=== PATIENT | male | born 1960 | race Caucasian/White ===

== ENCOUNTER 2019-04-11 09:49 | Inpatient (IN) | payer OTHER ==
[2019-04-11 10:14] VITALS: BMI 26.6
--- NOTE | 2019-04-11 10:54 | HP ---
COWS - Scale Resting Pulse: 1= DC 81-100 Sweatin= Chills/Flushing Restless Observation: 1= Difficult to Sit Still Pupil Size: 0= Normal to Room Light Bone or Joint Aches: 1= Mild Discomfort Runny Nose/ Eye Tearin= Runny Nose/Eyes GI Upset > 30mins: 2= Nausea/Diarrhea Tremor Observation: 2= Slight Tremor Visible Yawning Observation: 1= 1-2x During Session Anxiety or Irritability: 2=Irritable/Anxious Goose Flesh Skin: 0=Smooth Skin COWS Score: 13 CIWA Score Nausea/Vomitin Muscle Tremors: 4-Moderate,w/Arms Extend Anxiety: 4-Mod. Anxious/Guarded Agitation: 1-Slight > Activity Paroxysmal Sweats: 1-Minimal Palms Moist Orientation: 0-Oriented Tacttile Disturbances: 1-Very Mild Itch/Numbness Auditory Disturbances: 0-None Visual Disturbances: 4-Moderate Hallucinations (during exam, patient states he saw his mother yawning (she 2014)) Headache: 2-Mild CIWA-Ar Total Score: 19 - Admission Criteria [facility]ASAS Guidelines: Admission for Medically Managed Detox: Requires at least one of the followin. CIWA greater than 12 2. Seizures within the past 24 hours 3. Delirium tremens within the past 24 hours 4. Hallucinations within the past 24 hours 5. Acute intervention needed for co occurring medical disorder 6. Acute intervention needed for co occurring psychiatric disorder 7. Severe withdrawal that cannot be handled at a lower level of care (continued vomiting, continued diarrhea, abnormal vital signs) requiring intravenous medication and/or fluids 8. Patient presents the following: CIWA greater than 12 Admission Criteria Met: Admission criteria met Admitting History and Physical - Admission History Source: Patient - Social History Usual Living Arrangement: Yes: Other (homeless) ADL: Support Services Admission ROS S - HPI Chief Complaint: I am really sick and tired, I"m almost 60, I'm tired of running the streets and being belittled and wasting my money Allergies/Adverse Reactions: Allergies Allergy/AdvReac Type Severity Reaction Status Date / Time No Known Allergies Allergy Verified 04/11/19 10:00 History of Present Illness: 58 yo gentleman here for detox from alcohol and opiates. Patient has a very long history of treatment - has been in several residential treatment programs over the last 10 years ([facility] twice - once for 3 years, another time for 17 month; also in [facility] [address] for 18 months as well as a [facility] for six years. Patient has been on subxoxone for over a year - states he is homeless and his suboxone was stolen so he relapsed with heroin. urine tox + methamphetamine but not using separately. Patient agrees to stay on suboxone and do an alcohol detox. No seizure but history of overdose several times. [facility] Search Terms: dave peng, 1960 Search Date: 04/11/2019 11:43:37 AM The Drug Utilization Report below displays all of the controlled substance prescriptions, if any, that your patient has filled in the last twelve months. The information displayed on this report is compiled from pharmacy submissions to the Department, and accurately reflects the information as submitted by the pharmacies. This report was requested by: Becky Savage | Reference #: [id number] Others' Prescriptions Patient Name: Dave Peng Date: 1960 Address: [address] [place] [address] Sex: Male Rx Written Rx Dispensed Drug Quantity Days Supply Prescriber Name 03/30/2019 04/04/2019 buprenorphine-naloxone 8-2 mg sl film 90 30 BaezaBret) 03/30/2019 04/04/2019 zolpidem tartrate 10 mg tablet 30 30 Baeza Bret) 12/11/2018 03/11/2019 zolpidem tartrate 10 mg tablet 30 30 Baeza Bret) 02/28/2019 03/11/2019 buprenorphine-naloxone 8-2 mg sl film 90 30 BaezaBret) 12/11/2018 02/09/2019 zolpidem tartrate 10 mg tablet 30 30 Baeza Bret) 01/19/2019 02/09/2019 buprenorphine-naloxone 8-2 mg sl film 90 30 BaezaBret) 12/11/2018 01/10/2019 suboxone 8 mg-2 mg sl film 90 30 BaezaBret) 12/11/2018 01/10/2019 zolpidem tartrate 10 mg tablet 30 30 Baeza Bret) 12/11/2018 12/13/2018 suboxone 8 mg-2 mg sl film 90 30 Baeza, Bret VILLALOBOS) 12/11/2018 12/13/2018 zolpidem tartrate 10 mg tablet 30 30 Baeza , Bret VILLALOBOS) 08/29/2018 11/14/2018 zolpidem tartrate 10 mg tablet 30 30 Baeza , Bret VILLALOBOS) 10/10/2018 11/14/2018 suboxone 8 mg-2 mg sl film 90 30 Tyler Horn MD 08/29/2018 10/18/2018 zolpidem tartrate 10 mg tablet 30 30 Baeza , Bret VILLALOBOS) 10/10/2018 10/18/2018 suboxone 8 mg-2 mg sl film 90 30 SchaefTyler mead MD 08/29/2018 09/18/2018 suboxone 8 mg-2 mg sl film 90 30 Baeza, Bret VILLALOBOS) 08/29/2018 09/18/2018 zolpidem tartrate 10 mg tablet 30 30 Baeza , Bret VILLALOBOS) 07/22/2018 08/21/2018 suboxone 8 mg-2 mg sl film 90 30 Baeza, Bret VILLALOBOS) 07/22/2018 08/21/2018 zolpidem tartrate 10 mg tablet 30 30 Baeza , Bret VILLALOBOS) 07/22/2018 07/24/2018 suboxone 8 mg-2 mg sl film 90 30 Baeza, Bret VILLALOBOS) 07/22/2018 07/24/2018 zolpidem tartrate 10 mg tablet 30 30 Baeza , Bret VILLALOBOS) 06/09/2018 06/25/2018 suboxone 8 mg-2 mg sl film 90 30 Baeza, Bret VILLALOBOS) Patient Name: Dave Peng Date: 1960 Address: [address] [place] [address] Sex: Male Rx Written Rx Dispensed Drug Quantity Days Supply Prescriber Name 04/08/2018 05/26/2018 suboxone 8 mg-2 mg sl film 90 30 Baeza, Bret VILLALOBOS) 04/08/2018 04/26/2018 suboxone 8 mg-2 mg sl film 90 30 Baeza, Bret VILLALOBOS) Exam Limitations: Clinical Condition - Ebola screening Have you traveled outside of the country in the last 21 days: No Have you had contact with anyone from an Ebola affected area: No - Review of Systems Constitutional: Chills, Loss of Appetite, Malaise, Changes in sleep, Weakness, Unintentional Wgt. Loss EENT: reports: Blurred Vision, Nose Congestion Respiratory: reports: Wheezing Cardiac: reports: Chest Tightness GI: reports: Nausea, Poor Appetite, Indigestion, Abdominal cramping : reports: Frequency Musculoskeletal: reports: Back Pain, Joint Pain, Muscle Pain Integumentary: reports: No Symptoms Reported Neuro: reports: Headache, Tremors, Weakness Endocrine: reports: No Symptoms Reported Hematology: reports: No Symptoms Reported Psychiatric: reports: Judgement Intact, Mood/Affect Appropiate, Orientated x3, Anxious Other Systems: Reviewed and Negative Patient History - Patient Medical History Hx Anemia: No Hx Asthma: Yes Hx Chronic Obstructive Pulmonary Disease (COPD): No Hx Cancer: No Hx Cardiac Disorders: No Hx Congestive Heart Failure: No Hx Hypertension: No Hx Hypercholesterolemia: No Hx Pacemaker: No HX Cerebrovascular Accident: No Hx Seizures: No Hx Dementia: No Hx Diabetes: No Hx Gastrointestinal Disorders: Yes (GERD) Hx Liver Disease: No Hx Genitourinary Disorders: No Hx Sexually Transmitted Disorders: Yes (hx syphilis - got two shots) Hx Renal Disease (ESRD): No Hx Thyroid Disease: No Hx Human Immunodeficiency Virus (HIV): No Hx Hepatitis C: No Hx Depression: Yes (on meds) Hx Suicide Attempt: Yes (does not remember when ) Hx Bipolar Disorder: Yes (hx hospitalization) Hx Schizophrenia: Yes ('my papers say I am") - Patient Surgical History Past Surgical History: No Hx Neurologic Surgery: No Hx Cataract Extraction: No Hx Cardiac Surgery: No Hx Lung Surgery: No Hx Breast Surgery: No Hx Breast Biopsy: No Hx Abdominal Surgery: No Hx Appendectomy: No Hx Cholecystectomy: No Hx Genitourinary Surgery: No Hx Section: No Hx Orthopedic Surgery: No Anesthesia Reaction: No - PPD History Date: 01/13/14 - Reproductive History Patient is a Female of Child Bearing Age (11 -55 yrs old): No - Smoking Cessation Smoking history: Current every day smoker Have you smoked in the past 12 months: Yes Aproximately how many cigarettes per day: 30 Hx Chewing Tobacco Use: No Initiated information on smoking cessation: Yes 'Breaking Loose' booklet given: 04/11/19 (give on floor) - Substance & Tx. History Hx Alcohol Use: Yes Hx Substance Use: Yes Substance Use Type: Alcohol - Substances abused Alcohol Substance route: Oral Frequency: Daily Amount used: 1 PINT OF LIQUOR Age of first use: 15 Date of last use: 04/09/19 Heroin Substance route: Inhalation Frequency: Daily Amount used: 10 BAGS Age of first use: 35 Date of last use: 04/11/19 Admission Physical Exam BHS - Vital Signs Vital Signs: Vital Signs - 24 hr 04/11/19 10:11 Temperature 97.0 F L Pulse Rate 96 H Respiratory 18 Rate Blood Pressure 174/81 H - Physical General Appearance: Yes: Nourished, Disheveled, Moderate Distress, Tremorous, Irritable, Anxious HEENTM: Yes: EOMI, Hearing grossly Normal, Normocephalic, Normal Voice, Pharynx Normal, Other (no teeth (lost dentures)) Respiratory: Yes: No Respiratory Distress, Wheezing Neck: Yes: No masses,lesions,Nodules, Supple Breast: Yes: Breast Exam Deferred Cardiology: Yes: Regular Rhythm, Regular Rate Abdominal: Yes: Soft Genitourinary: Yes: Dribblimg, Other (patient requested I examine his rectal ' lump' = appears to be hemorrhoid) Back: Yes: Normal Inspection Musculoskeletal: Yes: full range of Motion, Gait Steady, Back pain, Muscle Pain Extremities: Yes: Normal Inspection, Normal Range of Motion, Tremors Neurological: Yes: Fully Oriented, Alert, Normal Mood/Affect, Normal Response Integumentary: Yes: Normal Color, Warm, Rash (interdigital rash both feet) Lymphatic: Yes: Within Normal Limits - Diagnostic (1) Alcohol dependence with withdrawal, uncomplicated Current Visit: Yes Status: Chronic (2) Opioid dependence with withdrawal Current Visit: Yes Status: Chronic Comment: will resume suboxone (3) Hemorrhoid Current Visit: Yes Status: Chronic Qualifiers: Hemorrhoid type: unspecified Qualified Code(s): K64.9 - Unspecified hemorrhoids (4) Tinea pedis Current Visit: Yes Status: Acute Qualifiers: Laterality: bilateral Qualified Code(s): B35.3 - Tinea pedis (5) Nicotine dependence Current Visit: Yes Status: Acute Qualifiers: Nicotine product type: cigarettes Substance use status: uncomplicated Qualified Code(s): F17.210 - Nicotine dependence, cigarettes, uncomplicated (6) Asthma Current Visit: Yes Status: Acute (7) History of drug overdose Current Visit: Yes Status: Resolved [facility] for [facility] Level of Care: Medically Managed Detox Regimen/Protocol: Methadone/Librium Inpatient Rehab Admission - Rehab Decision to Admit Inpatient rehab admission?: No
[2019-04-11] MEDS ORDERED: NICOTINE 14 MG/24 HOURS TOPICAL PATCH TD PRN (11:18)
[2019-04-11] MEDS ORDERED: MAGNESIUM HYDROX 2400MG/30ML ORAL SUSPENSION 30 ML CUP PO PRN (11:18)
[2019-04-11] MEDS ORDERED: METHOCARBAMOL 500 MG TABLET PO PRN (11:18)
[2019-04-11] MEDS ORDERED: ACETAMINOPHEN 325 MG TABLET (FP) PO PRN ×2 (11:18)
[2019-04-11] MEDS ORDERED: IBUPROFEN 400 MG TABLET (FP) PO PRN (11:18)
[2019-04-11] MEDS ORDERED: MAGNESIUM CITRATE 300 ML BOTTLE PO PRN (11:18)
[2019-04-11] MEDS ORDERED: METHADONE HCL 10 MG TABLET (FOR DETOX USE ONLY) PO ONE (11:18)
[2019-04-11] MEDS ORDERED: MAG HYDROX/AL HYDROX/SIMETH 30 ML UNIT-DOSE CUP PO PRN (11:18)
[2019-04-11] MEDS ORDERED: chlordiazePOXIDE HCL 25 MG CAPSULE PO PRN (11:18)
[2019-04-11] MEDS ORDERED: BISMUTH SUBSALICYLATE 524 MG/30 ML UD PO PRN (11:18)
[2019-04-11] MEDS ORDERED: ONDANSETRON *ODT* 4 MG TABLET SL PRN (11:18)
[2019-04-11] MEDS ORDERED: MELATONIN 5 MG TABLETS PO PRN (11:18)
[2019-04-11] MEDS ORDERED: MENTHOL/PHENOL 1 EACH UD MM PRN (11:18)
[2019-04-11] MEDS ORDERED: BENZOCAINE 28 GM HEMORRHOIDAL OINTMENT PR PRN (11:23)
[2019-04-11] MEDS ORDERED: ALBUTEROL SO4 8 GM HFA INHALER IH PRN (11:24)
[2019-04-11] MEDS ORDERED: chlordiazePOXIDE HCL 25 MG CAPSULE PO ONE (12:00)
[2019-04-11] MEDS: BUDESONIDE/FORMETEROL FUMARATE 80/4.5 mcg INHALER IH SCH ×2 (13:01→22:54)
[2019-04-11] MEDS: TOLNAFTATE 1% CREAM 15 GM TUBE TP SCH ×2 (13:01→22:54)
[2019-04-11] MEDS: chlordiazePOXIDE HCL 25 MG CAPSULE PO SCH ×2 (17:50→22:56)
[2019-04-11] MEDS ORDERED: MIRTAZAPINE 15 MG TABLET (FP) ONE (20:19)
[2019-04-11] MEDS ORDERED: BUPRENORPHINE/NALOXONE 8 MG/2 MG FILM PACKET SL ONE (22:00)
[2019-04-11] MEDS ORDERED: QUEtiapine FUMARATE 400 MG TABLET PO ONE (22:00)
[2019-04-11] MEDS ORDERED: MIRTAZAPINE 30 MG TABLET (FP) PO ONE (22:00)
[2019-04-11] MEDS: THIAMINE HCL 100 MG TABLET (FP) PO SCH (22:54)
[2019-04-12] MEDS: chlordiazePOXIDE HCL 25 MG CAPSULE PO SCH ×4 (06:15→22:28)
[2019-04-12] MEDS: BUPRENORPHINE/NALOXONE 8 MG/2 MG FILM PACKET SL SCH ×3 (06:16→21:25)
[2019-04-12] MEDS ORDERED: METHADONE (DETOX) 20 MG, METHADONE (DETOX) 5 MG PO ONE (10:00)
[2019-04-12] MEDS: PRENATAL VITAMINS W/ FOLIC ACID TABLET (FP) PO SCH (10:17)
[2019-04-12] MEDS: TOLNAFTATE 1% CREAM 15 GM TUBE TP SCH ×2 (10:18→22:34)
[2019-04-12] MEDS: BUDESONIDE/FORMETEROL FUMARATE 80/4.5 mcg INHALER IH SCH ×2 (10:18→22:34)
[2019-04-12 10:25] LABS: HEMATOCRIT 40.6 % (35.4-49); HEMOGLOBIN 13.1 GM/dL (11.7-16.9); MCH 27.8 pg (25.7-33.7); MCHC 32.2 g/dl (32.0-35.9); MEAN CELL VOLUME 86.3 fl (80-96); PLATELET COUNT 185 K/MM3 (134-434); RDW 13.7 % (11.9-15.9); WHITE BLOOD COUNT 7.1 K/mm3 (4.0-10.0)
[2019-04-12 10:26] LABS: BILIRUBIN,TOTAL 0.2 mg/dL (0.2-1); BLOOD UREA NITROGEN 12.8 mg/dL (7-18); CALCIUM 7.9 mg/dL (8.5-10.1); CREATININE 0.8 mg/dL (0.55-1.3); POTASSIUM 4.3 mmol/L (3.5-5.1); TOT PROT 5.7 g/dl (6.4-8.2)
--- NOTE | 2019-04-12 11:19 | PN ---
S CIWA - CIWA Score Nausea/Vomitin-No Nausea/No Vomiting Muscle Tremors: 2 Anxiety: 2 Agitation: 0-Normal Activity Paroxysmal Sweats: 3 Orientation: 0-Oriented Tacttile Disturbances: 0-None Auditory Disturbances: 0-None Visual Disturbances: 0-None Headache: 2-Mild CIWA-Ar Total Score: 9 BHS COWS - Scale Resting Pulse: 1= [place] 81-100 Sweatin= Chills/Flushing Restless Observation: 1= Difficult to Sit Still Pupil Size: 0= Normal to Room Light Bone or Joint Aches: 2= Severe Diffuse Aches Runny Nose/ Eye Tearin= None GI Upset > 30mins: 0= None Tremor Observation of Outstretched Hands: 2= Slight Tremor Visible Yawning Observation: 1= 1-2x During Session Anxiety or Irritability: 2=Irritable/Anxious Goose Flesh Skin: 0=Smooth Skin COWS Score: 10 BHS Progress Note (SOAP) Subjective: c/o anxiety, irritability, sweats, and headache. Objective: 04/12/19 11:18 Vital Signs 04/12/19 04/12/19 04/12/19 03:30 06:37 09:48 Temperature 98.6 F 97.8 F Pulse Rate 86 84 Respiratory 18 18 18 Rate Blood Pressure 200/97 H 152/98 Lab Results WBC 7.1 K/mm3 (4.0-10.0) 04/12/19 07:15 RBC 4.70 M/mm3 (4.00-5.60) 04/12/19 07:15 Hgb 13.1 GM/dL (11.7-16.9) 04/12/19 07:15 Hct 40.6 % (35.4-49) 04/12/19 07:15 MCV 86.3 fl (80-96) 04/12/19 07:15 MCHC 32.2 g/dl (32.0-35.9) 04/12/19 07:15 RDW 13.7 % (11.9-15.9) 04/12/19 07:15 Plt Count 185 K/MM3 (134-434) 04/12/19 07:15 Sodium 141 mmol/L (136-145) 04/12/19 07:15 Potassium 4.3 mmol/L (3.5-5.1) 04/12/19 07:15 Chloride 109 mmol/L (98-107) H 04/12/19 07:15 Carbon Dioxide 26 mmol/L (21-32) 04/12/19 07:15 Anion Gap 6 MMOL/L (8-16) L 04/12/19 07:15 BUN 12.8 mg/dL (7-18) 04/12/19 07:15 Creatinine 0.8 mg/dL (0.55-1.3) 04/12/19 07:15 Random Glucose 113 mg/dL (74-106) H 04/12/19 07:15 Calcium 7.9 mg/dL (8.5-10.1) L 04/12/19 07:15 Labs noted. Assessment: 04/12/19 11:19 AOX3, in no respiratory distress. Full ROM, ambulating in the unit. Withdrawal symptoms. Plan: continue detox.
[2019-04-12 12:11] LABS: TREPONEMA ANTIBODY PREVIOUSLY REACTIVE (NONREACTIVE)
[2019-04-12 12:16] LABS: RPR REACTIVE 1:1 (NONREACTIVE)
[2019-04-12] MEDS: cloNIDine HCL 0.1 MG TABLET PO PRN ×2 (13:08→16:56)
--- NOTE | 2019-04-12 16:01 | CONSULT ---
[facility] Psychiatric Consult - Data Date of interview: 04/12/19 Admission source: [facility] Identifying data: Senior Materials Analyst attempted to speak to patient before and after lunch but patient refused. Patient appeared lethargic and fatigue while in bed. Patient stated to service writer, " I'm don't feel well and i'm too tired to talk." Psychiatric consultation refused.
[2019-04-12] MEDS: THIAMINE HCL 100 MG TABLET (FP) PO SCH (21:18)
[2019-04-13] MEDS: chlordiazePOXIDE HCL 25 MG CAPSULE PO SCH ×4 (05:47→22:41)
[2019-04-13] MEDS: BUPRENORPHINE/NALOXONE 8 MG/2 MG FILM PACKET SL SCH ×3 (06:56→22:41)
[2019-04-13] MEDS ORDERED: METHADONE HCL 10 MG TABLET (FOR DETOX USE ONLY) PO ONE (10:00)
[2019-04-13] MEDS: PRENATAL VITAMINS W/ FOLIC ACID TABLET (FP) PO SCH (10:51)
[2019-04-13] MEDS: TOLNAFTATE 1% CREAM 15 GM TUBE TP SCH ×2 (10:51→22:41)
[2019-04-13] MEDS: BUDESONIDE/FORMETEROL FUMARATE 80/4.5 mcg INHALER IH SCH ×2 (10:51→22:41)
--- NOTE | 2019-04-13 13:06 | EKG ---
Test Reason : Blood Pressure : / mmHG Vent. Rate : 091 BPM Atrial Rate : 091 BPM P-R Int : 142 ms QRS Dur : 084 ms QT Int : 388 ms P-R-T Axes : 067 069 057 degrees QTc Int : 477 ms NORMAL SINUS RHYTHM NORMAL ECG NO PREVIOUS ECGS AVAILABLE Confirmed by WILLEM SALGUERO MD ([id number]) on 04/13/2019 1:06:28 PM Referred By: Confirmed By:WILLEM SALGUERO MD
[2019-04-13] MEDS: cloNIDine HCL 0.1 MG TABLET PO PRN ×2 (13:21→17:20)
--- NOTE | 2019-04-13 19:01 | PN ---
S CIWA - CIWA Score Nausea/Vomitin Muscle Tremors: 2 Anxiety: 3 Agitation: 2 Paroxysmal Sweats: 2 Orientation: 0-Oriented Tacttile Disturbances: 0-None Auditory Disturbances: 0-None Visual Disturbances: 2-Mild Sensitivity Headache: 0-None Present CIWA-Ar Total Score: 16 BHS COWS - Scale Resting Pulse: 1= [place] 81-100 Sweatin= Chills/Flushing Restless Observation: 1= Difficult to Sit Still Pupil Size: 0= Normal to Room Light Bone or Joint Aches: 2= Severe Diffuse Aches Runny Nose/ Eye Tearin= None GI Upset > 30mins: 3= Vomiting/Diarrhea Tremor Observation of Outstretched Hands: 2= Slight Tremor Visible Yawning Observation: 1= 1-2x During Session Anxiety or Irritability: 2=Irritable/Anxious Goose Flesh Skin: 0=Smooth Skin COWS Score: 13 BHS Progress Note (SOAP) Subjective: Anxious, Vomiting, Sweating, Tremors, Body Aches. Objective: PATIENT A & O X 3, OBSERVED AMBULATING ON DETOX UNIT UNASSISTED. 04/13/19 18:59 Vital Signs Temperature 100.4 F H 04/13/19 17:10 Pulse Rate 86 04/13/19 17:10 Respiratory Rate 18 04/13/19 17:10 Blood Pressure 159/83 04/13/19 17:10 O2 Sat by Pulse Oximetry (%) Laboratory Tests 04/12/19 04/12/19 04/12/19 07:15 07:15 07:15 WBC 7.1 RBC 4.70 Hgb 13.1 Hct 40.6 MCV 86.3 MCH 27.8 MCHC 32.2 RDW 13.7 Plt Count 185 MPV 10.0 Sodium 141 Potassium 4.3 Chloride 109 H Carbon Dioxide 26 Anion Gap 6 L BUN 12.8 Creatinine 0.8 Est GFR (CKD-EPI)AfAm 114.13 Est GFR (CKD-EPI)NonAf 98.47 Random Glucose 113 H Calcium 7.9 L Total Bilirubin 0.2 AST 17 ALT 19 Alkaline Phosphatase 97 Total Protein 5.7 L Albumin 3.0 L RPR Titer T.pallidum Ab ([facility]) HIV 1&2 Antibody Screen Negative HIV P24 Antigen Negative 04/12/19 07:15 WBC RBC Hgb Hct MCV MCH MCHC RDW Plt Count MPV Sodium Potassium Chloride Carbon Dioxide Anion Gap BUN Creatinine Est GFR (CKD-EPI)AfAm Est GFR (CKD-EPI)NonAf Random Glucose Calcium Total Bilirubin AST ALT Alkaline Phosphatase Total Protein Albumin RPR Titer Reactive 1:1 H T.pallidum Ab ([facility]) Previously reactive HIV 1&2 Antibody Screen HIV P24 Antigen LABS NOTED. PATIENT DENIES KNOWN HISTORY OF HTN. Assessment: 04/13/19 18:59 WITHDRAWAL SYMPTOMS. ELEVATED BLOOD PRESSURE. 04/13/19 19:01 Plan: CONTINUE DETOX. PRN ZOFRAN SL FOR NAUSEA / VOMITING. CONTINUE TO MONITOR BP. PRN CLONIDINE PO ADMINISTERED NECESSARY BASED UPON BP READINGS.
[2019-04-13] MEDS: THIAMINE HCL 100 MG TABLET (FP) PO SCH (22:41)
[2019-04-13] MEDS: CALCIUM 500MG/VIT-D 200 UNITS COMBO TABLET (FP) PO SCH (22:41)
[2019-04-14] MEDS ORDERED: chlordiazePOXIDE HCL 10 MG CAPSULE PO PRN
[2019-04-14] MEDS: chlordiazePOXIDE HCL 10 MG CAPSULE PO SCH ×2 (05:26→10:21)
[2019-04-14] MEDS: BUPRENORPHINE/NALOXONE 8 MG/2 MG FILM PACKET SL SCH ×2 (05:26→13:18)
[2019-04-14] MEDS ORDERED: METHADONE (DETOX) 10 MG, METHADONE (DETOX) 5 MG PO ONE (10:00)
[2019-04-14] MEDS: BUDESONIDE/FORMETEROL FUMARATE 80/4.5 mcg INHALER IH SCH (10:21)
[2019-04-14] MEDS: CALCIUM 500MG/VIT-D 200 UNITS COMBO TABLET (FP) PO SCH (10:21)
[2019-04-14] MEDS: PRENATAL VITAMINS W/ FOLIC ACID TABLET (FP) PO SCH (10:21)
[2019-04-14] MEDS: TOLNAFTATE 1% CREAM 15 GM TUBE TP SCH (10:22)
[2019-04-14 13:16] VITALS: BP 107/51; PULSE 101; TEMP 97.3
--- NOTE | 2019-04-14 15:29 | DS ---
[facility] Detox Discharge Summary Admission Date: 04/11/19 Discharge Date: 04/14/19 - History Present History: Alcohol Dependence, Opioid Dependence Additional Comments: PATIENT REPORTS THAT HE HAS A PERSONAL ISSUE TO ATTEND TO AND THAT HE DOES NOT WISH TO REMAIN TO COMPLETE DETOX REGIMEN. RISKS OF LEAVING DETOX UNIT AGAINST MEDICAL ADVICE AND PRIOR TO COMPLETION OF DETOX REGIMEN EXPLAINED TO PATIENT. PATIENT ADVISED TO GO IMMEDIATELY TO NEAREST ER SHOULD ANY INTOLERABLE WITHDRAWAL / DETOX SYMPTOMS DEVELOP AT ANY TIME. PATIENT VERBALIZED UNDERSTANDING OF ALL INFORMATION / RECOMMENDATIONS PRESENTED TO HIM PRIOR TO DEPARTURE FROM DETOX UNIT. WHEN ASKED, PATIENT REPORTS THAT HE COMPLETED A FULL COURSE OF ANTIBIOTIC TREATMENT FOR SYPHILIS IN THE PAST (DETOX ADMISSION RPR RESULT NOTED: REACTIVE 1:1; MHATP: PREVIOUSLY REACTIVE). PATIENT LEFT DETOX UNIT IN STABLE MEDICAL CONDITION. Pertinent Past History: Asthma, G.E.R.D., Bipolar Disorder, Schizophrenia, Tinea Pedis, History Of Hemorrhoids. - Physical Exam Results Vital Signs: Vital Signs Temperature 97.3 F L 04/14/19 13:15 Pulse Rate 101 H 04/14/19 13:15 Respiratory Rate 20 04/14/19 13:15 Blood Pressure 107/51 L 04/14/19 13:15 O2 Sat by Pulse Oximetry (%) Pertinent Admission Physical Exam Findings: WITHDRAWAL SYMPTOMS. Laboratory Tests 04/12/19 04/12/19 04/12/19 07:15 07:15 07:15 WBC 7.1 RBC 4.70 Hgb 13.1 Hct 40.6 MCV 86.3 MCH 27.8 MCHC 32.2 RDW 13.7 Plt Count 185 MPV 10.0 Sodium 141 Potassium 4.3 Chloride 109 H Carbon Dioxide 26 Anion Gap 6 L BUN 12.8 Creatinine 0.8 Est GFR (CKD-EPI)AfAm 114.13 Est GFR (CKD-EPI)NonAf 98.47 Random Glucose 113 H Calcium 7.9 L Total Bilirubin 0.2 AST 17 ALT 19 Alkaline Phosphatase 97 Total Protein 5.7 L Albumin 3.0 L RPR Titer T.pallidum Ab ([facility]) HIV 1&2 Antibody Screen Negative HIV P24 Antigen Negative 04/12/19 07:15 WBC RBC Hgb Hct MCV MCH MCHC RDW Plt Count MPV Sodium Potassium Chloride Carbon Dioxide Anion Gap BUN Creatinine Est GFR (CKD-EPI)AfAm Est GFR (CKD-EPI)NonAf Random Glucose Calcium Total Bilirubin AST ALT Alkaline Phosphatase Total Protein Albumin RPR Titer Reactive 1:1 H T.pallidum Ab ([facility]) Previously reactive HIV 1&2 Antibody Screen HIV P24 Antigen LABS NOTED. - Medication Discharge Medications: Ambulatory Orders Albuterol Sulfate Inhaler - [Ventolin Hfa Inhaler -] 2 inh PO Q4H PRN 04/11/19 Budesonide/Formeterol Fumarate [SYMBICORT 80/4.5mcg -] 1 inh PO BID 04/11/19 Mirtazapine [Remeron -] 30 mg PO HS 04/11/19 Quetiapine Fumarate [Seroquel -] 400 mg PO HS 04/11/19 - Diagnosis (1) Asthma Current Visit: Yes Status: Acute Qualifiers: Asthma severity: unspecified severity Asthma persistence: unspecified Asthma complication type: uncomplicated Qualified Code(s): J45.909 - Unspecified asthma, uncomplicated (2) Nicotine dependence Current Visit: Yes Status: Acute Qualifiers: Nicotine product type: cigarettes Substance use status: uncomplicated Qualified Code(s): F17.210 - Nicotine dependence, cigarettes, uncomplicated (3) Tinea pedis Current Visit: Yes Status: Acute Qualifiers: Laterality: bilateral Qualified Code(s): B35.3 - Tinea pedis (4) Alcohol dependence with withdrawal, uncomplicated Current Visit: Yes Status: Acute (5) Hemorrhoid Current Visit: Yes Status: Chronic Qualifiers: Hemorrhoid type: unspecified Qualified Code(s): K64.9 - Unspecified hemorrhoids (6) Opioid dependence with withdrawal Current Visit: Yes Status: Chronic (7) History of drug overdose Current Visit: Yes Status: Resolved - AMA Did Patient Leave Against Medical Advice: Yes (PT. HAD PERSONAL ISSUE AND DID NOT WISH TO COMPLETE DETOX.) S CIWA - CIWA Score Nausea/Vomitin Muscle Tremors: None Anxiety: 4-Mod. Anxious/Guarded Agitation: 2 Paroxysmal Sweats: 2 Orientation: 0-Oriented Tacttile Disturbances: 1-Very Mild Itch/Numbness Auditory Disturbances: 0-None Visual Disturbances: 0-None Headache: 0-None Present CIWA-Ar Total Score: 11 BHS COWS - Scale Resting Pulse: 2= [place] 101-120 Sweatin= Chills/Flushing Restless Observation: 1= Difficult to Sit Still Pupil Size: 0= Normal to Room Light Bone or Joint Aches: 2= Severe Diffuse Aches Runny Nose/ Eye Tearin= None GI Upset > 30mins: 2= Nausea/Diarrhea Tremor Observation of Outstretched Hands: 0= None Yawning Observation: 1= 1-2x During Session Anxiety or Irritability: 2=Irritable/Anxious Goose Flesh Skin: 0=Smooth Skin COWS Score: 11
[2019-04-15] MEDS ORDERED: chlordiazePOXIDE HCL 10 MG CAPSULE PO SCH (05:00)
[2019-04-15] MEDS ORDERED: METHADONE HCL 10 MG TABLET (FOR DETOX USE ONLY) PO ONE (10:00)
[2019-04-16] MEDS ORDERED: chlordiazePOXIDE HCL 10 MG CAPSULE PO ONE (05:00)
[2019-04-16] MEDS ORDERED: METHADONE HCL 5 MG TABLET (FOR DETOX USE ONLY) PO ONE (06:00)
== END 2019-04-14 14:20 | disposition left against medical advice (07) | DRG 894 ==
LOC: YASAS 09:49 → Y3N 11:30
PROVIDERS: ADMIT Allergy & Immunology; ATTEND Allergy & Immunology
PROC: HZ2ZZZZ Detoxification Services for Substance Abuse Treatment (ICD-10-PCS; principal; 2019-04-11)
DX: F10.230 Alcohol dependence with withdrawal, uncomplicated (principal); F11.23 Opioid dependence with withdrawal; F17.210 Nicotine dependence, cigarettes, uncomplicated; F20.9 Schizophrenia, unspecified; F31.9 Bipolar disorder, unspecified; J45.909 Unspecified asthma, uncomplicated; K21.9 Gastro-esophageal reflux disease without esophagitis; B35.3 Tinea pedis; K64.9 Unspecified hemorrhoids; R03.0 Elevated blood-pressure reading, without diagnosis of hypertension; Z86.19 Personal history of other infectious and parasitic diseases
CPT/HCPCS: 36415; 80053; 85027; 86593; 86780; 87389; 93005; 93010; J0735; Q0162

== ENCOUNTER 2023-04-03 16:13 | Inpatient (IN) | payer OTHER ==
[2023-04-03 17:51] VITALS: BMI 23.9
[2023-04-03] MEDS ORDERED: NALOXONE HCL (KLOXXADO) 8 MG SPRAY NS PRN (21:05)
[2023-04-03] MEDS ORDERED: MAGNESIUM HYDROX 2400MG/30ML ORAL SUSPENSION 30 ML CUP PO PRN (21:05)
[2023-04-03] MEDS ORDERED: IBUPROFEN 400 MG TABLET (FP) PO PRN (21:05)
[2023-04-03] MEDS ORDERED: P-EPHED 60MG/TRIPROLIDI 2.5MG TABLET PO PRN (21:05)
[2023-04-03] MEDS ORDERED: NALOXONE HCL 0.4 MG/ML VIAL IM PRN (21:05)
[2023-04-03] MEDS ORDERED: ACETAMINOPHEN 325 MG TABLET (FP) PO PRN (21:05)
[2023-04-03] MEDS ORDERED: BENZONATATE 200 MG CAPSULE PO PRN (21:05)
[2023-04-03] MEDS ORDERED: BENZOCAINE/MENTHOL (CHLORASEPTIC ) LOZENGE MM PRN (21:05)
[2023-04-03] MEDS ORDERED: MAG HYDROX/AL HYDROX/SIMETH 30 ML UNIT-DOSE CUP PO PRN (21:05)
[2023-04-03] MEDS ORDERED: POLYETHYLENE GLYCOL (HEALTHYLAX) 3350 17 GM PACKET PO PRN (21:05)
[2023-04-03] MEDS ORDERED: guaiFENesin 600 MG TABLET.ER (FP) PO PRN (21:05)
[2023-04-03] MEDS ORDERED: LOPERAMIDE HCL 2 MG CAPSULE PO PRN (21:05)
[2023-04-03] MEDS ORDERED: QUEtiapine FUMARATE 100 MG TABLET (FP) PO ONE (22:00)
[2023-04-03] MEDS ORDERED: MELATONIN 5 MG TABLETS PO SCH (22:00)
[2023-04-03] MEDS: THIAMINE HCL 100 MG TABLET (FP) PO SCH (22:19)
[2023-04-04] MEDS ORDERED: TUBERCULIN PPD 5 TU/0.1ML VIAL ID ONE ×2 (08:16→09:18)
[2023-04-04] MEDS: amLODIPine BESYLATE 10 MG TABLET (FP) PO SCH (09:26)
[2023-04-04] MEDS: PRENATAL VITAMINS W/ FOLIC ACID TABLET (FP) PO SCH (09:26)
[2023-04-04 10:37] LABS: HEMATOCRIT 38.6 % (35.4-49); HEMOGLOBIN 12.3 GM/dL (11.7-16.9); MCH 26.5 pg (25.7-33.7); MCHC 31.8 g/dl (32.0-35.9); MEAN CELL VOLUME 83.3 fl (80-96); MEAN PLT VOLUME 8.5 fl (7.5-11.1); PLATELET COUNT 298 10^3/uL (134-434); RBC 4.64 M/mm3 (4.00-5.60); RDW 13.4 % (11.9-15.9); WHITE BLOOD COUNT 8.1 K/mm3 (4.0-10.0)
[2023-04-04 11:02] LABS: POTASSIUM 4.8 mmol/L (3.5-5.1)
[2023-04-04 11:10] LABS: BLOOD UREA NITROGEN 21.2 mg/dL (7-18)
[2023-04-04 11:13] LABS: CREATININE 1.3 mg/dL (0.55-1.3)
[2023-04-04 11:14] LABS: BILIRUBIN,TOTAL 0.4 mg/dL (0.2-1)
[2023-04-04 11:15] LABS: TOT PROT 6.3 g/dl (6.4-8.2)
[2023-04-04] MEDS: THIAMINE HCL 100 MG TABLET (FP) PO SCH (21:39)
[2023-04-04] MEDS ORDERED: QUEtiapine FUMARATE 100 MG TABLET (FP) PO SCH (22:00)
[2023-04-05] MEDS: PRENATAL VITAMINS W/ FOLIC ACID TABLET (FP) PO SCH (10:29)
[2023-04-05] MEDS: LIDOCAINE 5% TOPICAL PATCH TP SCH (10:29)
[2023-04-05] MEDS: amLODIPine BESYLATE 10 MG TABLET (FP) PO SCH (10:29)
[2023-04-05] MEDS: IBUPROFEN 600 MG TABLET (FP) PO PRN (10:41)
[2023-04-05] MEDS: THIAMINE HCL 100 MG TABLET (FP) PO SCH (21:13)
[2023-04-05] MEDS: QUEtiapine FUMARATE 50 MG TABLET PO SCH (21:13)
[2023-04-05] MEDS: METHYL SALICYLATE/MENTHOL OINT 30 GM TUBE TP SCH (21:46)
[2023-04-05] MEDS: LIDOCAINE PATCH REMOVAL MC SCH (21:47)
[2023-04-06] MEDS: PRENATAL VITAMINS W/ FOLIC ACID TABLET (FP) PO SCH (10:06)
[2023-04-06] MEDS: LIDOCAINE 5% TOPICAL PATCH TP SCH (10:07)
[2023-04-06] MEDS: METHYL SALICYLATE/MENTHOL OINT 30 GM TUBE TP SCH ×2 (10:07→21:07)
[2023-04-06] MEDS: amLODIPine BESYLATE 10 MG TABLET (FP) PO SCH (13:44)
[2023-04-06] MEDS: LIDOCAINE PATCH REMOVAL MC SCH (21:07)
[2023-04-06] MEDS: THIAMINE HCL 100 MG TABLET (FP) PO SCH (21:07)
[2023-04-06] MEDS: QUEtiapine FUMARATE 50 MG TABLET PO SCH (21:07)
[2023-04-07] MEDS: LIDOCAINE 5% TOPICAL PATCH TP SCH (10:15)
[2023-04-07] MEDS: PRENATAL VITAMINS W/ FOLIC ACID TABLET (FP) PO SCH (10:15)
[2023-04-07] MEDS: METHYL SALICYLATE/MENTHOL OINT 30 GM TUBE TP SCH ×2 (10:16→21:19)
[2023-04-07] MEDS: amLODIPine BESYLATE 10 MG TABLET (FP) PO SCH (10:16)
[2023-04-07] MEDS: LIDOCAINE PATCH REMOVAL MC SCH (21:19)
[2023-04-07] MEDS: THIAMINE HCL 100 MG TABLET (FP) PO SCH (21:19)
[2023-04-07] MEDS: QUEtiapine FUMARATE 50 MG TABLET PO SCH (21:19)
[2023-04-08] MEDS: METHYL SALICYLATE/MENTHOL OINT 30 GM TUBE TP SCH ×2 (09:37→21:16)
[2023-04-08] MEDS: LIDOCAINE 5% TOPICAL PATCH TP SCH (09:37)
[2023-04-08] MEDS: amLODIPine BESYLATE 10 MG TABLET (FP) PO SCH (09:38)
[2023-04-08] MEDS: PRENATAL VITAMINS W/ FOLIC ACID TABLET (FP) PO SCH (09:38)
[2023-04-08] MEDS: THIAMINE HCL 100 MG TABLET (FP) PO SCH (21:14)
[2023-04-08] MEDS: QUEtiapine FUMARATE 50 MG TABLET PO SCH (21:14)
[2023-04-08] MEDS: LIDOCAINE PATCH REMOVAL MC SCH (21:15)
[2023-04-09] MEDS: amLODIPine BESYLATE 10 MG TABLET (FP) PO SCH (09:35)
[2023-04-09] MEDS: PRENATAL VITAMINS W/ FOLIC ACID TABLET (FP) PO SCH (09:35)
[2023-04-09] MEDS: METHYL SALICYLATE/MENTHOL OINT 30 GM TUBE TP SCH ×2 (09:35→21:49)
[2023-04-09] MEDS: LIDOCAINE 5% TOPICAL PATCH TP SCH (09:35)
[2023-04-09] MEDS: THIAMINE HCL 100 MG TABLET (FP) PO SCH (21:17)
[2023-04-09] MEDS: QUEtiapine FUMARATE 50 MG TABLET PO SCH (21:17)
[2023-04-09] MEDS: LIDOCAINE PATCH REMOVAL MC SCH (21:49)
[2023-04-10] MEDS: METHYL SALICYLATE/MENTHOL OINT 30 GM TUBE TP SCH ×2 (09:38→21:11)
[2023-04-10] MEDS: LIDOCAINE 5% TOPICAL PATCH TP SCH (09:38)
[2023-04-10] MEDS: amLODIPine BESYLATE 10 MG TABLET (FP) PO SCH (09:38)
[2023-04-10] MEDS: PRENATAL VITAMINS W/ FOLIC ACID TABLET (FP) PO SCH (09:39)
[2023-04-10] MEDS: QUEtiapine FUMARATE 50 MG TABLET PO SCH (21:10)
[2023-04-10] MEDS: THIAMINE HCL 100 MG TABLET (FP) PO SCH (21:10)
[2023-04-10] MEDS: LIDOCAINE PATCH REMOVAL MC SCH (21:11)
[2023-04-11] MEDS: PRENATAL VITAMINS W/ FOLIC ACID TABLET (FP) PO SCH (09:49)
[2023-04-11] MEDS: LIDOCAINE 5% TOPICAL PATCH TP SCH (09:49)
[2023-04-11] MEDS: METHYL SALICYLATE/MENTHOL OINT 30 GM TUBE TP SCH ×2 (09:49→21:29)
[2023-04-11] MEDS: amLODIPine BESYLATE 10 MG TABLET (FP) PO SCH (09:49)
[2023-04-11] MEDS: QUEtiapine FUMARATE 50 MG TABLET PO SCH (21:29)
[2023-04-11] MEDS: LIDOCAINE PATCH REMOVAL MC SCH (21:29)
[2023-04-11] MEDS: THIAMINE HCL 100 MG TABLET (FP) PO SCH (21:29)
[2023-04-12] MEDS: PRENATAL VITAMINS W/ FOLIC ACID TABLET (FP) PO SCH (09:31)
[2023-04-12] MEDS: LIDOCAINE 5% TOPICAL PATCH TP SCH (09:31)
[2023-04-12] MEDS: METHYL SALICYLATE/MENTHOL OINT 30 GM TUBE TP SCH ×2 (09:31→21:12)
[2023-04-12] MEDS: amLODIPine BESYLATE 10 MG TABLET (FP) PO SCH (09:31)
[2023-04-12] MEDS: QUEtiapine FUMARATE 50 MG TABLET PO SCH (21:11)
[2023-04-12] MEDS: THIAMINE HCL 100 MG TABLET (FP) PO SCH (21:12)
[2023-04-12] MEDS: LIDOCAINE PATCH REMOVAL MC SCH (21:12)
[2023-04-13] MEDS: METHYL SALICYLATE/MENTHOL OINT 30 GM TUBE TP SCH ×2 (09:58→22:31)
[2023-04-13] MEDS: LIDOCAINE 5% TOPICAL PATCH TP SCH (09:58)
[2023-04-13] MEDS: amLODIPine BESYLATE 10 MG TABLET (FP) PO SCH (09:58)
[2023-04-13] MEDS: PRENATAL VITAMINS W/ FOLIC ACID TABLET (FP) PO SCH (09:59)
[2023-04-13 12:25] LABS: PH,URINE 5.5 (5.0-8.0); URINE APPEARANCE CLEAR; URINE BILIRUBIN NEGATIVE (NEGATIVE); URINE COLOR YELLOW; URINE GLUCOSE (UA) NEGATIVE (NEGATIVE); URINE KETONE NEGATIVE (NEGATIVE); URINE LEUK ESTERASE NEGATIVE (NEGATIVE); URINE NITRITE NEGATIVE (NEGATIVE); URINE PROTEIN NEGATIVE (NEGATIVE); URINE UROBILINOGEN 0.2 mg/dL (0.2-1.0)
[2023-04-13] MEDS: QUEtiapine FUMARATE 50 MG TABLET PO SCH (21:37)
[2023-04-13] MEDS: THIAMINE HCL 100 MG TABLET (FP) PO SCH (21:37)
[2023-04-13] MEDS: LIDOCAINE PATCH REMOVAL MC SCH (22:31)
[2023-04-14] MEDS: METHYL SALICYLATE/MENTHOL OINT 30 GM TUBE TP SCH ×2 (09:51→21:37)
[2023-04-14] MEDS: amLODIPine BESYLATE 10 MG TABLET (FP) PO SCH (09:51)
[2023-04-14] MEDS: PRENATAL VITAMINS W/ FOLIC ACID TABLET (FP) PO SCH (09:51)
[2023-04-14] MEDS: LIDOCAINE 5% TOPICAL PATCH TP SCH (09:51)
[2023-04-14] MEDS: QUEtiapine FUMARATE 50 MG TABLET PO SCH (21:36)
[2023-04-14] MEDS: THIAMINE HCL 100 MG TABLET (FP) PO SCH (21:37)
[2023-04-14] MEDS: LIDOCAINE PATCH REMOVAL MC SCH (21:55)
[2023-04-15] MEDS: amLODIPine BESYLATE 10 MG TABLET (FP) PO SCH (09:51)
[2023-04-15] MEDS: PRENATAL VITAMINS W/ FOLIC ACID TABLET (FP) PO SCH (09:51)
[2023-04-15] MEDS: METHYL SALICYLATE/MENTHOL OINT 30 GM TUBE TP SCH ×2 (09:52→21:46)
[2023-04-15] MEDS: LIDOCAINE 5% TOPICAL PATCH TP SCH (09:52)
[2023-04-15] MEDS: COLLOIDAL OATMEAL 1 BAR EACH TP PRN (20:54)
[2023-04-15] MEDS: LIDOCAINE PATCH REMOVAL MC SCH (21:45)
[2023-04-15] MEDS: THIAMINE HCL 100 MG TABLET (FP) PO SCH (21:45)
[2023-04-15] MEDS: QUEtiapine FUMARATE 50 MG TABLET PO SCH (21:45)
[2023-04-16] MEDS: LIDOCAINE 5% TOPICAL PATCH TP SCH (09:53)
[2023-04-16] MEDS: METHYL SALICYLATE/MENTHOL OINT 30 GM TUBE TP SCH ×2 (09:53→21:11)
[2023-04-16] MEDS: PRENATAL VITAMINS W/ FOLIC ACID TABLET (FP) PO SCH (09:53)
[2023-04-16] MEDS: amLODIPine BESYLATE 10 MG TABLET (FP) PO SCH (09:54)
[2023-04-16] MEDS: QUEtiapine FUMARATE 50 MG TABLET PO SCH (21:10)
[2023-04-16] MEDS: THIAMINE HCL 100 MG TABLET (FP) PO SCH (21:10)
[2023-04-16] MEDS: LIDOCAINE PATCH REMOVAL MC SCH (21:11)
[2023-04-17] MEDS: METHYL SALICYLATE/MENTHOL OINT 30 GM TUBE TP SCH ×2 (09:48→21:54)
[2023-04-17] MEDS: LIDOCAINE 5% TOPICAL PATCH TP SCH (09:49)
[2023-04-17] MEDS: amLODIPine BESYLATE 10 MG TABLET (FP) PO SCH (09:49)
[2023-04-17] MEDS: PRENATAL VITAMINS W/ FOLIC ACID TABLET (FP) PO SCH (09:50)
[2023-04-17] MEDS: QUEtiapine FUMARATE 50 MG TABLET PO SCH (21:39)
[2023-04-17] MEDS: THIAMINE HCL 100 MG TABLET (FP) PO SCH (21:40)
[2023-04-17] MEDS: LIDOCAINE PATCH REMOVAL MC SCH (21:54)
[2023-04-18] MEDS: METHYL SALICYLATE/MENTHOL OINT 30 GM TUBE TP SCH ×2 (10:00→21:06)
[2023-04-18] MEDS: PRENATAL VITAMINS W/ FOLIC ACID TABLET (FP) PO SCH (10:00)
[2023-04-18] MEDS: amLODIPine BESYLATE 10 MG TABLET (FP) PO SCH (10:00)
[2023-04-18] MEDS: LIDOCAINE 5% TOPICAL PATCH TP SCH (10:00)
[2023-04-18] MEDS: THIAMINE HCL 100 MG TABLET (FP) PO SCH (21:06)
[2023-04-18] MEDS: QUEtiapine FUMARATE 50 MG TABLET PO SCH (21:06)
[2023-04-18] MEDS: COLLOIDAL OATMEAL 1 BAR EACH TP PRN (21:07)
[2023-04-18] MEDS: LIDOCAINE PATCH REMOVAL MC SCH (21:46)
[2023-04-19] MEDS: amLODIPine BESYLATE 10 MG TABLET (FP) PO SCH (09:53)
[2023-04-19] MEDS: METHYL SALICYLATE/MENTHOL OINT 30 GM TUBE TP SCH ×2 (09:54→21:09)
[2023-04-19] MEDS: PRENATAL VITAMINS W/ FOLIC ACID TABLET (FP) PO SCH (09:54)
[2023-04-19] MEDS: LIDOCAINE 5% TOPICAL PATCH TP SCH (09:54)
[2023-04-19] MEDS: THIAMINE HCL 100 MG TABLET (FP) PO SCH (21:08)
[2023-04-19] MEDS: QUEtiapine FUMARATE 50 MG TABLET PO SCH (21:08)
[2023-04-19] MEDS: LIDOCAINE PATCH REMOVAL MC SCH (21:09)
[2023-04-20] MEDS: LIDOCAINE 5% TOPICAL PATCH TP SCH (09:57)
[2023-04-20] MEDS: PRENATAL VITAMINS W/ FOLIC ACID TABLET (FP) PO SCH (09:57)
[2023-04-20] MEDS: amLODIPine BESYLATE 10 MG TABLET (FP) PO SCH (09:57)
[2023-04-20] MEDS: METHYL SALICYLATE/MENTHOL OINT 30 GM TUBE TP SCH ×2 (09:57→21:13)
[2023-04-20] MEDS: QUEtiapine FUMARATE 50 MG TABLET PO SCH (21:13)
[2023-04-20] MEDS: LIDOCAINE PATCH REMOVAL MC SCH (21:13)
[2023-04-20] MEDS: THIAMINE HCL 100 MG TABLET (FP) PO SCH (21:13)
[2023-04-21] MEDS: PRENATAL VITAMINS W/ FOLIC ACID TABLET (FP) PO SCH (09:39)
[2023-04-21] MEDS: LIDOCAINE 5% TOPICAL PATCH TP SCH (09:40)
[2023-04-21] MEDS: amLODIPine BESYLATE 10 MG TABLET (FP) PO SCH (09:40)
[2023-04-21] MEDS: METHYL SALICYLATE/MENTHOL OINT 30 GM TUBE TP SCH ×2 (09:40→22:00)
[2023-04-21] MEDS ORDERED: QUEtiapine FUMARATE 25 MG TABLET ONE (19:21)
[2023-04-21] MEDS: THIAMINE HCL 100 MG TABLET (FP) PO SCH (21:27)
[2023-04-21] MEDS: QUEtiapine FUMARATE 50 MG TABLET PO SCH (21:27)
[2023-04-21] MEDS: LIDOCAINE PATCH REMOVAL MC SCH (21:28)
[2023-04-22] MEDS: METHYL SALICYLATE/MENTHOL OINT 30 GM TUBE TP SCH ×2 (09:57→21:49)
[2023-04-22] MEDS: LIDOCAINE 5% TOPICAL PATCH TP SCH (09:57)
[2023-04-22] MEDS: amLODIPine BESYLATE 10 MG TABLET (FP) PO SCH (09:57)
[2023-04-22] MEDS: PRENATAL VITAMINS W/ FOLIC ACID TABLET (FP) PO SCH (09:58)
[2023-04-22] MEDS: QUEtiapine FUMARATE 50 MG TABLET PO SCH (21:49)
[2023-04-22] MEDS: LIDOCAINE PATCH REMOVAL MC SCH (21:49)
[2023-04-22] MEDS: THIAMINE HCL 100 MG TABLET (FP) PO SCH (21:50)
[2023-04-23] MEDS: LIDOCAINE 5% TOPICAL PATCH TP SCH (09:40)
[2023-04-23] MEDS: METHYL SALICYLATE/MENTHOL OINT 30 GM TUBE TP SCH ×2 (09:40→21:40)
[2023-04-23] MEDS: amLODIPine BESYLATE 10 MG TABLET (FP) PO SCH (09:41)
[2023-04-23] MEDS: PRENATAL VITAMINS W/ FOLIC ACID TABLET (FP) PO SCH (09:41)
[2023-04-23] MEDS: QUEtiapine FUMARATE 50 MG TABLET PO SCH (21:39)
[2023-04-23] MEDS: LIDOCAINE PATCH REMOVAL MC SCH (21:40)
[2023-04-23] MEDS: THIAMINE HCL 100 MG TABLET (FP) PO SCH (21:40)
[2023-04-24] MEDS: METHYL SALICYLATE/MENTHOL OINT 30 GM TUBE TP SCH ×2 (09:56→21:24)
[2023-04-24] MEDS: amLODIPine BESYLATE 10 MG TABLET (FP) PO SCH (09:57)
[2023-04-24] MEDS: PRENATAL VITAMINS W/ FOLIC ACID TABLET (FP) PO SCH (09:57)
[2023-04-24] MEDS: LIDOCAINE 5% TOPICAL PATCH TP SCH (09:57)
[2023-04-24] MEDS: THIAMINE HCL 100 MG TABLET (FP) PO SCH (21:23)
[2023-04-24] MEDS: QUEtiapine FUMARATE 50 MG TABLET PO SCH (21:23)
[2023-04-24] MEDS: LIDOCAINE PATCH REMOVAL MC SCH (21:24)
[2023-04-25] MEDS: LIDOCAINE 5% TOPICAL PATCH TP SCH (09:39)
[2023-04-25] MEDS: PRENATAL VITAMINS W/ FOLIC ACID TABLET (FP) PO SCH (09:39)
[2023-04-25] MEDS: amLODIPine BESYLATE 10 MG TABLET (FP) PO SCH (09:39)
[2023-04-25] MEDS: METHYL SALICYLATE/MENTHOL OINT 30 GM TUBE TP SCH ×2 (09:39→21:47)
[2023-04-25] MEDS: QUEtiapine FUMARATE 50 MG TABLET PO SCH (21:46)
[2023-04-25] MEDS: THIAMINE HCL 100 MG TABLET (FP) PO SCH (21:47)
[2023-04-25] MEDS: LIDOCAINE PATCH REMOVAL MC SCH (21:47)
[2023-04-26] MEDS: LIDOCAINE 4% PATCH TP SCH (09:45)
[2023-04-26] MEDS: amLODIPine BESYLATE 10 MG TABLET (FP) PO SCH (09:45)
[2023-04-26] MEDS: PRENATAL VITAMINS W/ FOLIC ACID TABLET (FP) PO SCH (09:46)
[2023-04-26] MEDS: METHYL SALICYLATE/MENTHOL OINT 30 GM TUBE TP SCH ×2 (09:46→21:36)
[2023-04-26] MEDS: THIAMINE HCL 100 MG TABLET (FP) PO SCH (21:35)
[2023-04-26] MEDS: QUEtiapine FUMARATE 50 MG TABLET PO SCH (21:35)
[2023-04-26] MEDS: LIDOCAINE PATCH REMOVAL MC SCH (21:36)
[2023-04-27] MEDS: LIDOCAINE 4% PATCH TP SCH (09:40)
[2023-04-27] MEDS: METHYL SALICYLATE/MENTHOL OINT 30 GM TUBE TP SCH ×2 (09:40→21:40)
[2023-04-27] MEDS: amLODIPine BESYLATE 10 MG TABLET (FP) PO SCH (09:41)
[2023-04-27] MEDS: PRENATAL VITAMINS W/ FOLIC ACID TABLET (FP) PO SCH (09:41)
[2023-04-27] MEDS: QUEtiapine FUMARATE 50 MG TABLET PO SCH (21:39)
[2023-04-27] MEDS: THIAMINE HCL 100 MG TABLET (FP) PO SCH (21:40)
[2023-04-27] MEDS: LIDOCAINE PATCH REMOVAL MC SCH (21:40)
[2023-04-28] MEDS: LIDOCAINE 4% PATCH TP SCH (10:11)
[2023-04-28] MEDS: METHYL SALICYLATE/MENTHOL OINT 30 GM TUBE TP SCH ×2 (10:11→22:17)
[2023-04-28] MEDS: PRENATAL VITAMINS W/ FOLIC ACID TABLET (FP) PO SCH (10:11)
[2023-04-28] MEDS: amLODIPine BESYLATE 10 MG TABLET (FP) PO SCH (10:11)
[2023-04-28] MEDS ORDERED: QUEtiapine FUMARATE 25 MG TABLET ONE (20:08)
[2023-04-28] MEDS: THIAMINE HCL 100 MG TABLET (FP) PO SCH (22:17)
[2023-04-28] MEDS: LIDOCAINE PATCH REMOVAL MC SCH (22:17)
[2023-04-28] MEDS: QUEtiapine FUMARATE 50 MG TABLET PO SCH (22:17)
[2023-04-29 07:15] VITALS: RESP 18
[2023-04-29] MEDS: METHYL SALICYLATE/MENTHOL OINT 30 GM TUBE TP SCH ×2 (09:36→21:36)
[2023-04-29] MEDS: LIDOCAINE 4% PATCH TP SCH (09:36)
[2023-04-29] MEDS: amLODIPine BESYLATE 10 MG TABLET (FP) PO SCH (09:36)
[2023-04-29] MEDS: PRENATAL VITAMINS W/ FOLIC ACID TABLET (FP) PO SCH (09:37)
[2023-04-29] MEDS: QUEtiapine FUMARATE 50 MG TABLET PO SCH (21:35)
[2023-04-29] MEDS: LIDOCAINE PATCH REMOVAL MC SCH (21:36)
[2023-04-29] MEDS: THIAMINE HCL 100 MG TABLET (FP) PO SCH (21:36)
[2023-04-30] MEDS: METHYL SALICYLATE/MENTHOL OINT 30 GM TUBE TP SCH ×2 (09:59→21:21)
[2023-04-30] MEDS: amLODIPine BESYLATE 10 MG TABLET (FP) PO SCH (09:59)
[2023-04-30] MEDS: LIDOCAINE 4% PATCH TP SCH (09:59)
[2023-04-30] MEDS: PRENATAL VITAMINS W/ FOLIC ACID TABLET (FP) PO SCH (10:00)
[2023-04-30] MEDS: QUEtiapine FUMARATE 50 MG TABLET PO SCH (21:21)
[2023-04-30] MEDS: LIDOCAINE PATCH REMOVAL MC SCH (21:21)
[2023-04-30] MEDS: THIAMINE HCL 100 MG TABLET (FP) PO SCH (21:22)
[2023-05-01] MEDS: amLODIPine BESYLATE 10 MG TABLET (FP) PO SCH (09:33)
[2023-05-01] MEDS: METHYL SALICYLATE/MENTHOL OINT 30 GM TUBE TP SCH ×2 (09:34→21:33)
[2023-05-01] MEDS: LIDOCAINE 4% PATCH TP SCH (09:34)
[2023-05-01] MEDS: PRENATAL VITAMINS W/ FOLIC ACID TABLET (FP) PO SCH (09:34)
[2023-05-01 14:39] VITALS: PULSE 87
[2023-05-01] MEDS: QUEtiapine FUMARATE 50 MG TABLET PO SCH (21:31)
[2023-05-01] MEDS: IBUPROFEN 600 MG TABLET (FP) PO PRN (21:31)
[2023-05-01] MEDS: LIDOCAINE PATCH REMOVAL MC SCH (21:33)
[2023-05-01] MEDS: THIAMINE HCL 100 MG TABLET (FP) PO SCH (21:33)
[2023-05-02 07:11] VITALS: BP 148/73; TEMP 97.7
[2023-05-02] MEDS: amLODIPine BESYLATE 10 MG TABLET (FP) PO SCH (09:13)
[2023-05-02] MEDS: PRENATAL VITAMINS W/ FOLIC ACID TABLET (FP) PO SCH (09:13)
[2023-05-02] MEDS: METHYL SALICYLATE/MENTHOL OINT 30 GM TUBE TP SCH (09:13)
[2023-05-02] MEDS: LIDOCAINE 4% PATCH TP SCH (09:13)
== END 2023-05-02 09:17 | disposition home or self-care (01) | DRG 895 ==
LOC: YASAS 16:13 → Y5N 21:14
PROVIDERS: ADMIT Allergy & Immunology; ATTEND Psychiatry & Neurology Pain Medicine
PROC: HZ42ZZZ Group Counseling for Substance Abuse Treatment, Cognitive-Behavioral (ICD-10-PCS; principal; 2023-04-03)
DX: F11.20 Opioid dependence, uncomplicated (principal); F19.282 Other psychoactive substance dependence with psychoactive substance-induced sleep disorder; Z59.02 Unsheltered homelessness; F17.210 Nicotine dependence, cigarettes, uncomplicated; F31.9 Bipolar disorder, unspecified; F20.9 Schizophrenia, unspecified; G62.9 Polyneuropathy, unspecified; G47.00 Insomnia, unspecified; M54.50 Low back pain, unspecified; Z99.89 Dependence on other enabling machines and devices; Z28.310 Unvaccinated for COVID-19; Z28.9 Immunization not carried out for unspecified reason; Z86.19 Personal history of other infectious and parasitic diseases
CPT/HCPCS: 36415; 71046-TC-FY; 71101-TC-LT-FY; 80053; 81003; 85027; 86593; 86780; 87635; 93005; 93010